=== PATIENT | male | born 1960 | race Caucasian/White ===

== ENCOUNTER 2017-08-09 18:54 | Emergency (ER) | payer OTHER ==
[~2017-08-09] VITALS: Ht 195.6 cm; Wt 176.0 kg
[~2017-08-09 18:54] MED LIST: Coumadin,Jantoven PO; Flonase BOTH NARES; Levaquin PO; OMEPRAZOLE40 M1 PO; Proventil,Ventolin H IH; WARFARIN SODIUM10 MG PO
[2017-08-09 19:15] LABS: HEMATOCRIT 45.5 % (38.0-50.0); HEMOGLOBIN 14.6 G/DL (12.5-16.6); MCH 28.2 PG (29.0-34.0); MCHC 32.1 G/DL (30.0-36.0); PLATELET COUNT 202 K/uL (156-360); RBC DIS.WIDTH-CV 13.7 % (11.8-14.6); RBC DIS.WIDTH-SD 44.3 % (39-53); RED BLOOD COUNT 5.17 M/uL (4.00-5.50); WHITE BLOOD COUNT 7.3 K/uL (4.1-10.2)
[2017-08-09 19:25] LABS: ALBUMIN 4.2 g/dL (3.2-4.8)
[2017-08-09 19:26] LABS: CHLORIDE 104 mEq/L (99-109); POTASSIUM 4.2 mEq/L (3.7-5.4); SODIUM 138 mEq/L (136-147)
[2017-08-09 19:28] LABS: GLUCOSE 168 mg/dL (70-99); TOTAL PROTEIN 7.6 g/dL (6.4-8.3)
[2017-08-09 19:30] LABS: TOTAL BILIRUBIN 0.7 mg/dL (0.0-1.0)
[2017-08-09 19:31] LABS: ALKALINE PHOSPHATASE 63 IU/L (3-129)
[2017-08-09 19:32] LABS: CREATININE 0.9 mg/dL (0.6-1.3); GFR ESTIMATE (CALCULATED) > 59 mL/min/ (58.99-99999)
[2017-08-09 19:33] LABS: AST (GOT) 30 IU/L (2-34); UREA NITROGEN (BUN) 13 mg/dL (9-23)
[2017-08-09 19:35] LABS: ALT (GPT) 38 IU/L (3-49)
[2017-08-09 20:23] LABS: APPEARANCE SL.HAZY ((CLEAR)); BILIRUBIN NEGATIVE; BLOOD NEGATIVE; COLOR YELLOW ((YELLOW)); GLUCOSE (STRIP) NEGATIVE; KETONES NEGATIVE; LEUKOCYTES NEGATIVE; NITRITE NEGATIVE; PROTEIN (STRIP) 30; SPECIFIC GRAVITY 1.021 (1.000-1.030)
[2017-08-09 20:27] LABS: BACTERIA NONE SEEN /HPF; EPITHELIAL CELLS RARE /HPF; MUCUS TRACE /LPF; RED BLOOD CELLS 0-5 /HPF (0-5); UCUL ADDED? NO; WHITE BLOOD CELLS 0-5 /HPF (0-5)
[2017-08-09 22:57] VITALS: BP 153/100
== END 2017-08-09 22:59 | disposition home or self-care (01) ==
LOC: EME 18:54
DX: R10.32 Left lower quadrant pain (principal); N50.89 Other specified disorders of the male genital organs; K76.0 Fatty (change of) liver, not elsewhere classified; N20.0 Calculus of kidney; Z90.49 Acquired absence of other specified parts of digestive tract; Z79.01 Long term (current) use of anticoagulants; F17.200 Nicotine dependence, unspecified, uncomplicated
CPT/HCPCS: 74177; 80053; 81003; 85027; 99281; 99284